=== PATIENT | male | born 1995 | race Caucasian/White ===

== ENCOUNTER 2017-09-06 17:01 | Emergency (ER) | payer SELFPAY ==
[~2017-09-06] VITALS: Ht 185.4 cm; Wt 65.8 kg
[~2017-09-06 17:01] MED LIST: 'PARAFON FORTE500 M1 PO; CIPRO500 MG PO; CLARITIN10 MG PO; FLAGYL500 M1 PO; KEFLEX500 MG PO; LIDEX 0.05% CRE15 GM T; LIDEX0.05% T; MEDROL DOSEPAK4 MG PO; Motrin,Rufen800 MG PO; NAPROSYN500 MG PO; NKHM; NORCO 325 MG-51 TAB; PREDNICOT20 MG PO; PREDNISONE20 M1 PO; TAMIFLU75 MG PO
== END 2017-09-06 17:16 | disposition home or self-care (01) ==
LOC: ED 17:01
DX: K12.0 Recurrent oral aphthae (principal); R03.0 Elevated blood-pressure reading, without diagnosis of hypertension; Z90.49 Acquired absence of other specified parts of digestive tract; Z79.899 Other long term (current) drug therapy

== ENCOUNTER 2019-10-23 20:52 | Emergency (ER) | payer SELFPAY ==
[~2019-10-23] VITALS: Ht 182.8 cm; Wt 70.3 kg
[2019-10-23] MEDS ORDERED: CYCLOBENZAPRINE10 MG PO (21:17)
[2019-10-23] MEDS ORDERED: IBU600 M1 PO (21:17)
== END 2019-10-23 21:24 | disposition home or self-care (01) ==
LOC: ED 20:52
DX: S39.012A Strain of muscle, fascia and tendon of lower back, initial encounter (principal); Z90.49 Acquired absence of other specified parts of digestive tract; X58.XXXA Exposure to other specified factors, initial encounter; Y93.89 Activity, other specified; Y92.89 Other specified places as the place of occurrence of the external cause; Y99.8 Other external cause status

== ENCOUNTER 2019-10-30 15:13 | Emergency (ER) | payer SELFPAY ==
[~2019-10-30] VITALS: Ht 180.3 cm; Wt 72.6 kg
[~2019-10-30 15:13] MED LIST changes: +CYCLOBENZAPRINE10 MG PO; +IBU600 M1 PO
[2019-10-30] MEDS ORDERED: AUGMENTIN 875-875 MG PO (16:00)
== END 2019-10-30 16:14 | disposition home or self-care (01) ==
LOC: ED 15:13
DX: S01.451A Open bite of right cheek and temporomandibular area, initial encounter (principal); Z79.899 Other long term (current) drug therapy; Y04.1XXA Assault by human bite, initial encounter; Y93.89 Activity, other specified; Y92.89 Other specified places as the place of occurrence of the external cause; Y99.8 Other external cause status

== ENCOUNTER 2021-08-19 16:33 | Emergency (ER) | payer SELFPAY ==
[~2021-08-19] VITALS: Ht 180.3 cm; Wt 77.1 kg
[~2021-08-19 16:33] MED LIST changes: +AUGMENTIN 875-875 MG PO
[2021-08-19] MEDS ORDERED: TOBRAMYCIN 5 ML5 M1 OPH (18:00)
[2021-08-19] MEDS ORDERED: IBUPROFEN600 MG PO (18:00)
== END 2021-08-19 18:03 | disposition home or self-care (01) ==
LOC: ED 16:33
DX: S05.01XA Injury of conjunctiva and corneal abrasion without foreign body, right eye, initial encounter (principal); Z90.49 Acquired absence of other specified parts of digestive tract; W22.8XXA Striking against or struck by other objects, initial encounter; Y93.89 Activity, other specified; Y92.89 Other specified places as the place of occurrence of the external cause; Y99.8 Other external cause status